=== PATIENT | male | born 1970 | race Caucasian/White ===

== ENCOUNTER 2023-10-08 01:15 | Emergency (ER) | payer BC, SELFPAY ==
--- NOTE | 2023-10-08 01:17 | ED_ITS ---
HPI - General Adult General Time Seen by Provider: 01:17 Date Seen: 10/08/23 Chief complaint: Abdominal Pain Stated complaint: lower abdominal pain Time Seen by Provider: 10/08/23 01:17 Source: patient, RN notes reviewed and old records reviewed Mode of arrival: ambulatory Limitations: no limitations History of Present Illness HPI narrative: 53-year-old male who comes in today with abdominal pain. Patient complains of left lower quadrant abdominal pain starting in the evening. Had some diarrhea tonight as well, nausea without vomiting. No blood in the stools. No fevers or chills, denies urinary symptoms. No known trauma. Has not taken anything for symptoms. Distant history of diverticulitis and is concerned he may have it again. Related Data Home Medications ?Medication ?Instructions ?Recorded ?Confirmed No Known Home Medications 10/08/23 10/08/23 Allergies Allergy/AdvReac Type Severity Reaction Status Date / Time No Known Drug Allergies Allergy Verified 10/08/23 01:21 [facility] Medical History (Updated 10/08/23 @ 02:29 by Yadiel Lamar MD) Diverticulitis ?K57.92 - Diverticulitis of intestine, part unspecified, without perforation or abscess without bleeding (ICD-10) Social History Smoking Status: Never smoker How often do you have a drink containing alcohol: never AUDIT-C Alcohol total score: 0 Non-prescribed substance use: denies use Exam Narrative: Exam Narrative: General: Well-developed and well-nourished, no acute distress Head: Atraumatic and normocephalic Eyes: Pupils are equal reactive, extraocular motions intact, conjunctiva clear ENT: External nose and ears are normal, posterior pharynx without erythema or exudate Neck: No midline cervical tenderness, full spontaneous range of motion the neck, trachea midline, no adenopathy Heart: Regular rate and rhythm no murmurs or thrills Lungs: Clear to auscultation bilaterally without wheezes or crackles Abdomen: Soft, left lower quadrant tenderness,, nondistended with active bowel sounds Musculoskeletal: No tenderness, deformity, or edema Neurologic: Awake, alert, and oriented x3, no gross focal neurologic deficits, cranial nerves intact as tested Psych: Mood and affect are appropriate Skin: No rashes Const: Vital Signs, click to edit/add: Vital Signs - 24 hr 10/08/23 01:19 Temperature 98.0 F Pulse Rate [Pulse Oximeter] 80 Respiratory Rate 16 Blood Pressure [Le ft Upper Arm] 149/91 H Pulse Oximetry 98 Oxygen Delivery Me thod Room Air Course Course ED Course: Patient seen and examined, reviewed prior records. Patient with history of diverticulitis 12 years ago presents with left lower quadrant abdominal pain, along with loose stools tonight, no blood in the stools, nausea without vomiting. On exam here, vital is stable to left lower quadrant tenderness. Symptoms are consistent with diverticulitis, consider colitis or ureteral stone as well. CT scan is ordered to evaluate for perforation or abscess, plan for antibiotics and likely discharge if CT scan is reassuring. Reevaluation(s) Time of Reevaluation #1: 02:27 Reevaluation #1: Labs ordered and independently interpreted by me with normal CBC, normal basic metabolic panel. CT scan independently interpreted by me with acute uncomplicated diverticulitis. Patient will be started on Zosyn in the emergency department and discharged with Augmentin. Vital Signs Vital signs: Initial Vital Signs Temperature 98.0 F 10/08/23 01:19 Temperature Source Temporal Artery Scan 10/08/23 01:19 Pulse Rate 80 10/08/23 01:19 Respiratory Rate 16 10/08/23 01:19 Blood Pressure 149/91 H 10/08/23 01:19 Blood Pressure Mean 110 H 10/08/23 01:19 Blood Pressure Position Sitting 10/08/23 01:19 Pulse Oximetry 98 10/08/23 01:19 Oxygen Delivery Method Room Air 10/08/23 01:19 Vital Signs Temperature 98.0 F 10/08/23 01:19 Pulse Rate 80 10/08/23 01:19 Respiratory Rate 16 10/08/23 01:19 Blood Pressure 149/91 H 10/08/23 01:19 Pulse Oximetry 98 10/08/23 01:19 Oxygen Delivery Method Room Air 10/08/23 01:19 Temperature 98.0 F 10/08/23 01:19 Pulse Rate 80 10/08/23 01:19 Respiratory Rate 16 10/08/23 01:19 Blood Pressure 149/91 H 10/08/23 01:19 Pulse Oximetry 98 10/08/23 01:19 Oxygen Delivery Method Room Air 10/08/23 01:19 Medical Decision Making Lab Data Labs: Lab Results 10/08/23 Range/Units 01:38 WBC 10.08 (4.50-11.00) K/uL RBC 4.75 (4.30-5.90) m/uL Hgb 14.1 (13.5-17.5) gm/dL Hct 41.9 (37.0-53.0) % MCV 88 (80-100) fL MCH 30 (26-34) pg MCHC 34 (32-36) gm/dL RDW Coeff of Camila 12.0 (11.5-15.5) % Plt Count 242 (140-440) K/uL Neut % (Auto) 71.1 (42.0-72.0) % Lymph % (Auto) 17.9 L (20-44) % Campbell % (Auto) 9.4 (0.0-11.0) % Eos % (Auto) 1.2 (0.0-7.0) % Baso % (Auto) 0.3 (0.0-3.0) % Neut # (Auto) 7.17 H (1.7-7.0) K/uL Lymph # (Auto) 1.80 (0.90-2.90) K/uL Campbell # (Auto) 0.90 (0.00-0.90) K/UL Eos # (Auto) 0.12 (0.00-0.50) K/uL Baso # (Auto) 0.03 (0.00-0.30) K/uL Abs Immat Gran (auto) 0.01 (0.00-0.30) K/uL Imm/Tot Granulo (auto) 0.1 % Sodium 137 (135-149) mmol/L Potassium 4.0 (3.6-5.1) mmol/L Chloride 105 (96-114) mmol/L Carbon Dioxide 25 (20-32) mmol/L Anion Gap 7 (7-15) mEq/L BUN 17 (7-30) mg/dL Creatinine 1.1 (0.5-1.5) mg/dL Estimated Creat Clear 97.54 Estimated GFR 81 ml/min Glucose 126 H (60-115) mg/dL Calcium 9.0 (8.4-10.6) mg/dL Discharge Plan Discharge Clinical Impression: Diverticulitis Patient Disposition: Home, Self-Care Condition: Stable Instructions: Diverticulitis (DC), Diverticulitis Diet (ED) Additional Instructions: Take antibiotics as prescribed starting in the morning Take Tylenol or ibuprofen as needed for pain Activity Level: Activity as Tolerated Discharge Diet: Regular Prescriptions: No Action No Known Home Medications Follow Up/Referrals: Provider,Not a Local [Primary Care Provider] - Stand Alone Forms: Equivalent DATAth Info Instructions
[2023-10-08 01:19] VITALS: BP 149/91; PULSE 80; RESP 16; TEMP 36.7; O2SAT 98; BMI 31.6
--- NOTE | 2023-10-08 01:42 | CRLHL7_ITS ---
For Patients: As a result of the Century Cures Act, medical imaging exams and procedure reports are released immediately into your electronic medical record. You may view this report before your referring provider. If you have questions, please contact your health care provider. Indication: Left lower quadrant pain concern for diverticulitis Technique: CT through the abdomen and pelvis following 128 mL Isovue 370 IV contrast Comparison: None Findings: Lower chest: No acute abnormality appreciated. Hepatobiliary: No significant parenchymal abnormality is appreciated. Spleen: Unremarkable. Pancreas: No acute abnormality appreciated. Adrenal glands: No acute abnormality appreciated. Kidneys: No significant parenchymal abnormality appreciated. No visualized calculi. No hydronephrosis. Bowel: No obstruction. Diverticulosis. Wall thickening and stranding of the proximal sigmoid colon surrounding an inflamed appearing diverticulum compatible with acute diverticulitis. The appendix is visualized and appears unremarkable. Vascular: No acute abnormality appreciated. Lymph nodes: No gross lymphadenopathy. Peritoneum: No free air. No free fluid. : No acute abnormality appreciated. Soft tissues: No acute abnormality appreciated. Bones: No acute fracture. No lytic or blastic lesion. Impression: Acute uncomplicated sigmoid diverticulitis. Please note that all CT scans at this facility use dose modulation, iterative reconstruction, and/or weight-based dosing when appropriate to reduce radiation dose to as low as reasonably achievable. Dictated by Chris Reeves MD @ 10/08/2023 2:23:22 AM (Electronically Signed)
--- OUTSIDE RECORDS SUMMARY | 2023-10-08 01:44 | XMS_ITS | Continuity of Care Document ---
Author Organization [facility] Address [address] [address] [place] [address] Phone Care Team Providers Care Senior Manager Mmcoe Name Role Phone Taina Valdez CRNA Unavailable Unavailable Allergies, Adverse Reactions, Alerts Substance Reaction Status Criticality No Known Allergies Active No Inform ation Medications Medication Instructions Dosage Effective Dates (start - stop) Status Comments MiralaxBisacodylMagCit Colon Prep Use as directed - Active Procedures Procedure Date Colonoscopy Flex; W/remov Les- Colonoscopy Flex; W/bx /mx Level Iv-surg Path Gross/micro Colonoscopy Flex; W/remov Les- Level Iv-surg Path Gross/micro Advance Directives Directive Yes / No Effective Date File Name No Information Encounters Encounter Description Practice Location Reason(s) For Visit Diagnoses Date Provider Providers Copied on Encounter [facility], [address] [address], [place], [id number], [place] tel:[phone] [facility] No Information José Miguel Her. [address], [facility] [address], [place], [id number] , [place]. [phone] Referring Provider: Salome Quintero MD, [address], [place], [address] . tel:[phone] [facility] [place], [address] [address], [place], [id number], [place] tel:[phone] [facility] Colorectal polypsDiverticul osis of colon without diverticulitisPe rsonal history of colonic polypsEncounter for screening for malignant neoplasm of colonBenign neoplasm of transverse colonBenign neoplasm of sigmoid colonBenign neoplasm of sigmoid colonBenign neoplasm of transverse colonPersonal history of colonic polyps 1 Leon Mcmahon. [address], [address], [place], [place], [address] , [place]. [phone] Referring Provider: Referral Self, USE FOR SELF REFERRALS. [facility], [address] [address], [place], [place], [address], [place] tel:[phone] [facility] No Information 1 Joel oGins. [address], [address], [place], [place], [address] , [place]. [phone] [facility], [address] [address], [place], [address], [place] tel:[phone] [facility] Colon polypDiverticulo sis of large intestine without hemorrhageIntern al hemorrhoidsBenig n neoplasm of ascending colonOther hemorrhoidsDvrtc los of lg int w/o perforation or abscess w/o bleeding 6 Juan Moore. [address], [address], [place], [address] , [place]. [phone] Referring Provider: Angelo Hoang, [address], [place], [address]. tel:[phone] [facility], [address] [address], [place], [address], [place] tel:[phone] [facility] No Information 6 Hai King. [address], [address], [place], [place], [address] , [place]. [phone] Referring Provider: Angelo Hoang, [address], [place], [address]. tel:[phone] Family History Family Member Type Diagnosis Age At Onset Sister Problem (finding) Alive and well Father Problem (finding) Alive and well Son Problem (finding) Alive and well Daughter Problem (finding) Alive and well Brother Problem (finding) Alive and well Mother Problem (finding) Alive and well Sister Problem (finding) Crohn's disease Immunizations Vaccine Date Status Comments Afluria Qd administered Note: [facility] bi-directional interface ; Source: Other Registry tetanus toxoid, reduced diphtheria toxoid, and acellular pertussis vaccine, adsorbed administered Note: [facility] b i-directional interface ; Source: Other Registry Influenza administered Note: [facility] bi-d irectional interface ; Source: Other Registry Afluria Qd administered Note: [facility] bi-directional interface ; Source: Other Registry Afluria Qd administered Note: [facility] bi-directional interface ; Source: Other Registry Influenza, seasonal, injectable administe red Note: [facility] bi- directional interface ; Source: Other Registry Influenza, seasonal, injectable administe red Note: [facility] bi- directional interface ; Source: Other Registry Influenza, seasonal, injectable administe red Note: [facility] bi- directional interface ; Source: Other Registry tetanus and diphtheria toxoi ds, adsorbed, preservative free, for adult use (5 Lf of tetanus toxoid and 2 Lf of diphtheria toxoid) administered Note: [facility] bi-direct ional interface ; Source: Other Registry Afluria Qd administered Note: [facility] bi-directional interface ; Source: Other Registry Novel [id number], all formulations administered Note: [facility] bi-direct ional interface ; Source: Other Registry influenza virus vaccine, unspecified formulation administered Note: [facility] bi-di rectional interface ; Source: Other Registry Influenza, seasonal, injectable administe red Note: [facility] bi- directional interface ; Source: Other Registry Payers Payer name Insurance type Covered alliance party ID Authoriza tion(s) [employer] [facility] [id number] Social History Type Description Quantity Date Captured Comments Sex Male Smoking Status No Information Chief Complaint And Reason For Visit No Information Reason For Referral Reason For Referral No Information History Of Present Illness Encounter Date Complaint History Of Prese nt Illness No Information Functional Status Date Functional Assessmen t No Information Medications Administered Medication Instructions Dosage Effective Dates (start - stop) Status Comments No Drug Therapy Prescribed Instructions Date Instruction Additional Infor mation Diverticulosis/Diverticulitis Re lated to Colorectal polyps Colon Polyps Related to Color ectal polyps Colon Cancer Prevention Related to Colorectal polyps High Fiber Diet Related to Color ectal polyps high fiber diet Related to Colon polyp Hemorrhoids Related to Colon polyp Colon Cancer Prevention Related to Colon polyp Colon Polyps Related to Colon polyp Diverticulosis/Diverticulitis Re lated to Colon polyp Assessments Type Assessment Date No Information Patient Care Teams Name Effective Dates (start - stop) Status Members No Information
--- OUTSIDE RECORDS SUMMARY | 2023-10-08 01:44 | XMS_ITS | Clinical Summary ---
Author Organization [facility] Address [place], [place] [address] Care Team Providers Care Mud Grinder Name Role Phone Pcp, No Primary Care Provider Unavailabl e Allergies No known active allergies Medications No known medications Active Problems No known active problems Social History Tobacco Use Types Packs/Day Years Used Date Smoking Tobacco: Never Smokeless Tobacco: Never Alcohol Use Standard Drinks/Week Comments Yes 2 (1 standard drink = 0.6 oz pur e alcohol) occasionally Sex and Gender Information Value Date Recorded Sex Assigned at Not on file Gender Identity Not on file Sexual Orientation Not on file Obstetrics History Last Filed Vital Signs Vital Sign Reading Time Taken Comments Blood Pressure 132/94 10/11/2020 8:10 AM CDT Pulse 81 10/11/2020 8:10 AM CDT Temperature 37.2 ??C (98.9 ??F) 10/11/2020 8:10 AM CD T Respiratory Rate 16 10/11/2020 8:10 AM CDT Oxygen Saturation 96% 10/11/2020 8:10 AM CDT Inhaled Oxygen Concentration - - Weight 113.4 kg (250 lb) 10/11/2020 8:10 AM CDT Height 193 cm (6' 4) 10/11/2020 8:10 AM CDT Body Mass Index 30.43 10/11/2020 8:10 AM CDT Plan of Treatment Health Maintenance Due Date Last Done Comments Tdap 07/18/1983 Depression screening for age 12+ 1984 HIV for age 15-65 07/18/1987 Hepatitis C screening for ag e 18-79 1990 Tetanus booster 1992 Lipids for age 45-75 2017 BMI (ht and wt on same day) for age 18+ 10/11/2021 10/11/2020 Zoster (shingles) series for age 50+ (1 of 2) 2022 COVID-19 vaccine series ( - 2022- season) 2022 Influenza for age 50-64 11/18/2023 Colonoscopy through age 75 10/18/2030 10/18/2020 Pneumococcal series for age 6-64 Aged Out No longer eligible based on patient's age to complete this topic Procedures Procedure Name Priority Date/Time Associated Diagnosis Comments SCAN-COLONOSCOPY 10/18/2020 10:0 0 AM CDT from Last 3 Months or Most Recently Relevant to Health Maintenance Results * SCAN-COLONOSCOPY (10/18/2020 10:00 AM CDT) Narrative Procedure Note Salome Quintero MD - 10/18/2020 9:21 AM CDT [facility] [address] [place] [address], [address], [place] [address] Patient Name: Joseph Wesley Gender: Male Exam Date: 10/18/2020 Visit Number: [id number] Age: 50 Years Date of : 1970 Attending MD: Salome Quintero MD Medical Record#: [id number] Procedure: Colonoscopy Indications: Previous adenomatous polyp(s) 2016- 6mm TA Referring MD: Referral Self Primary MD: Angelo Lopez MD Medications: Admitting Medications: 0.9% Normal Saline at [facility] Intra Procedure Medications: Patient received monitored anesthesia care. Complications: No immediate complications Procedure: An examination of the heart and lungs was performed and found to be withinacceptable limits. . The patient was therefore deemed a reasonablecandidate for endoscopy and sedation. The risks and benefits of the procedure were explained to the patient.After obtaining informed consent, the patient received monitoredanesthesia care and I passed the scope without difficulty via the rectum to the cecum. The appendiceal orificeand ic valve were identified. The scope was retroflexed during theexamination The quality of the prep was good (Miralax/Gatorade/2 tabletsBisacodyl/Magnesium Citrate). This was a complete examination throughout the entire colon. Findings: Polyp location: ascending colon. Quantity: 1. Size: 2 mm. Polyp shape:sessile. Maneuver: polypectomy was performed with a cold biopsy forceps. Removal: complete. Retrieval: complete. Bleeding: none. Polyp location: transverse colon. Quantity: 1. Size: 2 mm. Polyp shape:sessile. Maneuver: polypectomy was performed with a cold biopsy forceps . Removal: complete. Retrieval: complete. Bleeding: none. Polyp location: sigmoid. Quantity: 1. Size: 4 mm. Polyp shape:sessile. Maneuver: polypectomy was performed with a cold snare . Removal: complete. Retrieval: complete. Bleeding: none. Diverticulosis. Location: - descending colon - sigmoid. Description:moderate. Size: medium. Quantity: several. No inflammationpresent. Impression: Colorectal polyps Diverticulosis of colon without diverticulitis Personal history of colonic polyps Preliminary Plan: The patient and their physician will receive a copy of the pathologyreport as well as pathology-based recommendations for future screening orsurveillance. Pathology Results: A: COLON, ASCENDING, POLYP: 1. Normal colonic mucosa (clinically, 1 polyp) 2. Negative for serrated change, dysplasia, and malignancy B: COLON, TRANSVERSE, POLYP: 1. Tubular adenoma 2. Negative for high grade dysplasia 3. Per the colonoscopy report: a. Polyp size: 2 mm b. Resection: Complete c. Retrieval: Complete C: COLON, SIGMOID, POLYP: 1. Tubular adenoma 2. Negative for high grade dysplasia 3. Per the colonoscopy report: a. Polyp size: 4 mm b. Resection: Complete c. Retrieval: Complete MICROSCOPIC A: Performed B: Performed C: Performed SPECIAL STAINING/DEEPER A: Deeper Electronically signed by: Liang Manning MD Interpreted at [facility], [address] [place] [address] Orders Instruction(s)/Education: Instruction/Education Timeframe Assessment Colon Cancer Prevention K63.5 Colon Polyps K63.5 Diverticulosis/Diverticulitis K63.5 High Fiber Diet K63.5 Final Plan: Repeat colonoscopy in 5 years. We will attempt to contact you at appropriate intervals via U.S. mail. Wemay not be able to find you or contact you at that time, therefore youshould know that the responsibility for following our recommendation restswith you. If you don't hear from us at the time your procedure is due,please contact our office to schedule an appointment. If your contactinformation should change, please contact our office so that we can updateyour record. _Electronically signed by: Salome Quintero MD 10/18/2020 cc: Angelo Lopez MD cc: Referral Self Salome Quintero MD OTHER from Last 3 Months or Most Recently Relevant to Health Maintenance Care Teams Mud Grinder Relationship Specialty Start Date End Date Pcp, No . PCP - General 08/30/11
--- OUTSIDE RECORDS SUMMARY | 2023-10-08 01:44 | XMS_ITS | Continuity of Care Document ---
Author Organization [facility] Address [address] [address] [place] [address] Phone Care Team Providers Care Clinical Document Improvement Educator Name Role Phone Taina Valdez CRNA Unavailable [...] Diagnoses Date Provider Providers Copied on Encounter [facility], [address] [address], [place], [id number], [place] tel:[phone] [facility] No Information José Miguel Her. [address] [facility], [facility] [address], [place], [id number] , [place]. [phone] Referring Provider: Salome Quintero MD, [address] [facility] [address], [place], [address] . tel:[phone] [facility], [address] [address], [place], [id number], [place] tel:[phone] [facility] Colorectal polypsDiverticul osis of colon without diverticulitisPe rsonal history of colonic polypsEncounter for screening for malignant neoplasm of colonBenign neoplasm of transverse colonBenign neoplasm of sigmoid colonBenign neoplasm of sigmoid colonBenign neoplasm of transverse colonPersonal history of colonic polyps 1 Leon Mcmahon. [address] [facility], [address], [place], [place], [address] , [place]. [phone] Referring Provider: Referral Self, USE FOR SELF REFERRALS. [facility], [address] [address], [place], [address], [place] tel:[phone] [facility] No Information 1 Joel Goins. [address] [facility], [address], [place], [place], [address] , [place]. [phone] [facility], [address] [address], [place], [address], [place] tel:[phone] [facility] Colon polypDiverticulo sis of large intestine without hemorrhageIntern al hemorrhoidsBenig n neoplasm of ascending colonOther hemorrhoidsDvrtc los of lg int w/o perforation or abscess w/o bleeding 6 Juan Moore. [address] [facility], [address], [place], [place], [address] , [place]. [phone] Referring Provider: Angelo Hoang, [address], [place], [address]. tel:[phone] [facility], [address] [address], [place], [address], [place] tel:[phone] [facility] No Information 6 Hai King. [address] [facility], [address], [place], [place], [address] , [place]. [phone] Referring Provider: Angelo Hoang, [address], [place], [address]. tel:[phone] Family History Family Member Type Diagnosis Age [...] bi-directional interface ; Source: Other Registry Novel [id number], all formulations administered Note: [facility] bi-direct ional interface ; Source: Other Registry influenza virus vaccine, unspecified formulation administered Note: [facility] bi-di rectional interface ; Source: Other Registry Influenza, seasonal, injectable administe red Note: [facility] bi- directional interface ; Source: Other Registry Payers Payer name Insurance type Covered constitution party ID Authoriza tion(s) [employer] Of [facility] [id number] Social History Type Description Quantity Date Captured [...]
[2023-10-08 01:51] LABS: Basophils Absolute Auto 0.03 K/uL (0.00-0.30); Basophils Percent Auto 0.3 % (0.0-3.0); Eosinophils Absolute Auto 0.12 K/uL (0.00-0.50); Eosinophils Percent Auto 1.2 % (0.0-7.0); Hematocrit 41.9 % (37.0-53.0); Hemoglobin* 14.1 gm/dL (13.5-17.5); Immature Granulocytes Abs Auto 0.01 K/uL (0.00-0.30); Immature Granulocytes Pct Auto 0.1 %; Lymphocytes Percent Auto 17.9 % (20-44); Mean Corpuscular HGB Conc 34 gm/dL (32-36); Mean Corpuscular Hemoglobin 30 pg (26-34); Mean Corpuscular Volume 88 fL (80-100); Monocytes Percent Auto 9.4 % (0.0-11.0); Neutrophils Absolute Auto 7.17 K/uL (1.7-7.0); Neutrophils Percent Auto 71.1 % (42.0-72.0); Platelet Count* 242 K/uL (140-440); Red Blood Count 4.75 m/uL (4.30-5.90); White Blood Count* 10.08 K/uL (4.50-11.00)
[2023-10-08 01:52] LABS: Slide Review Reflex No
[2023-10-08 01:56] LABS: Chloride* 105 mmol/L (96-114); Sodium* 137 mmol/L (135-149)
[2023-10-08 01:59] LABS: Anion Gap 7 mEq/L (7-15); Carbon Dioxide* 25 mmol/L (20-32); Creatinine* 1.1 mg/dL (0.5-1.5); Est. Creatinine Clearance* 97.54; Estimated Glomerular Filt Rate 81 ml/min
[2023-10-08 02:00] LABS: Blood Urea Nitrogen* 17 mg/dL (7-30); Glucose* 126 mg/dL (60-115)
[2023-10-08] MEDS: PIPERACILLIN/TAZOBACTAM 3.375 GM in 0.9 % SODIUM CHLORIDE Mini-bag 100 ML IVPB (02:33)
== END 2023-10-08 03:00 | disposition home or self-care (01) ==
PROVIDERS: Emergency Provider Family Medicine
DX: K57.92 Diverticulitis of intestine, part unspecified, without perforation or abscess without bleeding (principal)
CPT/HCPCS: 36415; 74177; 80048; 85025; 96374; 99284; 99285; J2543; Q9967

== ENCOUNTER 2024-07-17 08:17 | Outpatient (CLI) | payer BC, SELFPAY | END 2024-07-17 08:18 | disposition home or self-care (01) | LOC: NFLDREF 07-20 10:36 | PROVIDERS: PCP Internal Medicine; Referring Provider Internal Medicine; Visit Provider Internal Medicine | DX: Z00.00 Encounter for general adult medical examination without abnormal findings (principal); Z13.228 Encounter for screening for other metabolic disorders; Z13.6 Encounter for screening for cardiovascular disorders; Z12.5 Encounter for screening for malignant neoplasm of prostate | CPT/HCPCS: 80053; 80061; G0103 ==